=== PATIENT | female | born 1995 | race Caucasian/White ===

== ENCOUNTER 2018-03-04 05:13 | Inpatient (IN) | payer OTHER ==
[2018-03-04 05:41] VITALS: BMI 24.7
[2018-03-04] MEDS ORDERED: Lidocaine 1% (PF) 30 ML VIAL SC PRN (06:23)
[2018-03-04] MEDS ORDERED: NS / Oxytocin 40 units/1000ml 1,000 ML IV PRN (06:23)
[2018-03-04] MEDS ORDERED: Ibuprofen 800 MG TAB PO PRN (06:23)
[2018-03-04] MEDS ORDERED: Methylergonovine 0.2 MG/ML VIAL IM PRN ×2 (06:23→17:59)
[2018-03-04] MEDS ORDERED: Ondansetron HCl/PF 4 MG/2 ML Vial IVP PRN ×2 (06:23→17:59)
[2018-03-04] MEDS ORDERED: Promethazine HCl 25 MG/ML VIAL IM PRN (06:23)
[2018-03-04] MEDS ORDERED: HYDROcodone/Acetaminophen 5/325 mg Tablet PO PRN ×4 (06:23→17:59)
[2018-03-04] MEDS ORDERED: Misoprostol 200 MCG TAB PR PRN (06:23)
[2018-03-04] MEDS: Lactated Ringer's 1,000 ML IV PRN ×3 (06:27→10:07)
[2018-03-04 06:43] LABS: Hemoglobin 11.6 g/dL (12.0-16.0); Mean Corpuscular HGB CONC 34.4 g/dL (32.0-36.0); Mean Corpuscular Hemoglobin 30.5 pg (27.0-31.0); Mean Corpuscular Volume 88.6 fl (81.0-99.0); Mean Platelet Volume 9.3 fL (7.4-10.4); Platelet Count 144 thou/uL (130-400); RBC Distribution Width 12.1 % (11.5-14.5)
--- NOTE | 2018-03-04 07:01 | PDOC.LDHP ---
Labor and Delivery H&P Chief complaint: contractions, loss of fluid HPI: At 1230 pt reports a big loss of fluid that was clear. she tried to labor at home as long as possible, but came to the hospital after 0400 because she was having a hard time dealing with the pain. Current gestational age (weeks): 40 Due date: 03/01/18 Dating criteria: first trimester ultrasound Grav: 1 Para: 0 Current complications: none Abnormal US findings: No Past Medical History: Recurrectn UTIs and kidney infections Current medications: pre- vitamins Previous surgical history: none Allergies/Adverse Reactions: Allergies Allergy/AdvReac Type Severity Reaction Status Date / Time No Known Drug Allergies Allergy Verified 03/04/18 05:34 - Physical Exam Vital signs reviewed and normal: yes General: breathing through contractions Heart: RRR Lungs: CTAB Abdomen: gravid Extremeties: trace edema FHT: category 1 - Vaginal Exam cm dilated: 2 Effacement: 50% Station: 1+ - OB Labs Blood type: B RH: positive Antibody Screen: negative HIV: negative RPR: negative HEPSAg: negative 1 hour GCT: negative GBS: negative Urine drug screen: not done Rubella: immune - Assessment L&D Assessment: term patient in labor - Plan Plan: admit to L&D, anesthesia consult for pain management
[2018-03-04 07:15] LABS: Syphilis Antibody Nonreactive (Nonreactive); Syphilis Antibody Index 0.03 S/CO (<1.00 Non-Reactive)
[2018-03-04] MEDS ORDERED: Bupivacaine 0.5% 20 ML, fentaNYL Citrate/PF 400 MCG in Sodium Chloride 0.9% 72 ML EPIDURAL SCH ×2 (07:15→10:15)
[2018-03-04] MEDS ORDERED: DISCONTINUE ALL PREVIOUS NARCOTICS FS SCH (07:15)
[2018-03-04 07:16] LABS: HBSAg Index 0.22 S/CO (0-0.99); Hep B Surf Ag Non-Reactive S/CO (NonReactive)
[2018-03-04] MEDS ORDERED: LR 500 ML/Oxytocin 10 units 500 ML IV SCH (10:00)
[2018-03-04] MEDS ORDERED: Lactated Ringer's 500 ML IV PRN (10:07)
[2018-03-04] MEDS ORDERED: Eucerin (Mineral Oil/Petrolatum,White) 30 gm Jar TOP PRN (10:07)
[2018-03-04] MEDS ORDERED: ePHEDrine/0.9% NaCl/PF SYRINGE 50 mg/10 ml SLOW IVP PRN (10:07)
[2018-03-04] MEDS ORDERED: Naloxone HCl 0.4 mg/ml Vial IVP PRN (10:07)
[2018-03-04] MEDS ORDERED: Fentanyl 4mcg/Marcaine 0.1% Cassette 100 ML EPIDURAL SCH (10:15)
[2018-03-04] MEDS ORDERED: Communication Order-Pharmacy FS SCH (10:15)
[2018-03-04] MEDS ORDERED: Lidocaine 1% (PF) 30 ML VIAL ONE (15:02)
[2018-03-04] MEDS ORDERED: NS / Oxytocin 40 units/1000ml 1,000 ML ONE (15:02)
[2018-03-04] MEDS ORDERED: Benzocaine/Menthol 20-0.5% 60 ML CAN TOP PRN ×2 (17:06→17:59)
[2018-03-04] MEDS ORDERED: Lanolin Ointment 7 GM TUBE TOP PRN (17:59)
[2018-03-04] MEDS ORDERED: Bisacodyl 10 MG SUPP PR PRN (17:59)
[2018-03-04] MEDS ORDERED: Adacel (T-DAP) 0.5 ML VIAL IM ONE (17:59)
[2018-03-04] MEDS ORDERED: Misoprostol 200 MCG TAB VAG SCH (17:59)
[2018-03-04] MEDS ORDERED: Milk Of Magnesia 30 ML UDCUP PO PRN (17:59)
[2018-03-04] MEDS ORDERED: NS / Oxytocin 40 units/1000ml 1,000 ML IV SCH (17:59)
[2018-03-04] MEDS: Ferrous Sulfate 325 MG TAB PO SCH (19:30)
[2018-03-04] MEDS: Docusate Calcium (SURFAK) 240 MG CAP PO SCH (20:50)
[2018-03-04] MEDS: Ibuprofen 800 MG TAB PO SCH (21:59)
[2018-03-05] MEDS: Ibuprofen 800 MG TAB PO SCH ×3 (05:58→21:37)
[2018-03-05 06:24] LABS: Hemoglobin 9.6 g/dL (12.0-16.0); Mean Corpuscular HGB CONC 33.7 g/dL (32.0-36.0); Mean Platelet Volume 8.8 fL (7.4-10.4); Platelet Count 130 thou/uL (130-400); RBC Distribution Width 12.3 % (11.5-14.5); White Blood Cell (WBC) Count 15.4 thou/uL (4.8-10.8)
--- NOTE | 2018-03-05 07:40 | PDOC.OPDEL ---
OB Operative/Delivery Note Delivery Dr/Surgeon: Zeferino Assist: Light Pre-Delivery Diagnosis: active labor Procedure/Post Delivery Dx: spontaneous vaginal delivery Weeks gestation: 39 Anesthesia: epidural - Findings A Sex: male - 1 min: 3 - 5 min: 4 (7- 10 min) - Additional Findings/Plan Placenta delivered: spontaneous Repaired Obstetrical Laceration: right labial (and left labial approximated with 2-0 vicryl, hemostatic, 2nd degree perineal extending into sulcus reapproximated with 2-0 vicryl in usual fashion with hemostasis noted.) Estimated blood loss: 400 Compilations/Other Findings: Delivered straight OP position. FHT reassuring prior to delivery, slight tachycardia, possibly early chorio. Baby floppy but initially responded to stimulation and cried on maternal chest, delayed cord clamping x 3 min, then due to poor coloration, tone and cry taken to warmer where cpap was started and Dr Bedolla called. Infant to NICU mom to routine recovery. Post delivery plan: routine recovery
[2018-03-05] MEDS: Prenatal Vitamin 1 TAB PO SCH (09:15)
[2018-03-05] MEDS: Ferrous Sulfate 325 MG TAB PO SCH ×2 (09:15→17:20)
[2018-03-05] MEDS: Docusate Calcium (SURFAK) 240 MG CAP PO SCH ×2 (09:15→21:39)
--- NOTE | 2018-03-05 14:08 | PDOC.PP ---
Post Progress Note Post Day #: 1 Subjective: pt is doing well. able to urinate on her own. Feeling sore. Is pumping, but not getting much out. PO intake tolerated: yes Flatus: yes Ambulation: yes Vital Signs (12 hours) Temp Pulse Resp BP 03/05/18 08:55 98.8 F 70 18 110/72 03/05/18 08:06 98.8 F 70 18 03/05/18 04:10 98.0 F 66 20 Weight Weight 168 lb - Physical Examination Cardiovascular: no m/r/g Respiratory: non-labored breathing Abdominal: lochia (minimal) Fundus firm & at: U-1 Extremities: negative homans (B) Perineum: edematous Neurological: no gross focal deficits Psychiatric: A&Ox3 Result Diagrams: 03/05/18 06:01 Additional Labs: Post Labs Blood Type B POSITIVE 03/04/18 06:37 Hep Bs Antigen Non-Reactive S/CO (NonReactive) 03/04/18 06:37 (1) (spontaneous vaginal delivery) Code(s): O80 - ENCOUNTER FOR FULL-TERM UNCOMPLICATED DELIVERY Status: Acute (2) Occiput posterior presentation of fetus Code(s): O64.0XX0 - OBSTRUCTED LABOR DUE TO INCMPL ROTATION OF HEAD, UNSP Status: Acute (3) Second degree laceration of perineum, delivered, current hospitalization Code(s): O70.1 - SECOND DEGREE PERINEAL LACERATION DURING DELIVERY Status: Acute - Assessment/Plan A: G1 now P1 s/p with PPD#1 exam which is normal P: routine care. continue breast pump Q3 hrs or feeding at breast directly.
[2018-03-06] MEDS: Ibuprofen 800 MG TAB PO SCH ×2 (06:11→13:29)
--- NOTE | 2018-03-06 06:47 | PDOC.PP ---
Post Progress Note Post Day #: 1 Subjective: doing much better. walking is getting easier PO intake tolerated: yes Flatus: yes Ambulation: yes Vital Signs (12 hours) Temp Pulse Resp BP 03/05/18 20:30 97.9 F 77 18 111/76 Weight Weight 168 lb - Physical Examination General: NAD Cardiovascular: no m/r/g Respiratory: clear to auscultation bilaterally Abdominal: + bowel sounds, lochia (minimal) Fundus firm & at: -2 Extremities: negative homans (B) Perineum: minimal edema Neurological: no gross focal deficits Psychiatric: A&Ox3 Result Diagrams: 03/05/18 06:01 Additional Labs: Post Labs Blood Type B POSITIVE 03/04/18 06:37 Hep Bs Antigen Non-Reactive S/CO (NonReactive) 03/04/18 06:37 (1) (spontaneous vaginal delivery) Code(s): O80 - ENCOUNTER FOR FULL-TERM UNCOMPLICATED DELIVERY Status: Acute (2) Occiput posterior presentation of fetus Code(s): O64.0XX0 - OBSTRUCTED LABOR DUE TO INCMPL ROTATION OF HEAD, UNSP Status: Acute (3) Second degree laceration of perineum, delivered, current hospitalization Code(s): O70.1 - SECOND DEGREE PERINEAL LACERATION DURING DELIVERY Status: Acute - Assessment/Plan A: G1 now P1 sp with NL PPD#2 exam P; routine postartum care. continue pump q 3hrs. plan for discharge tomorrow
[2018-03-06] MEDS: Ferrous Sulfate 325 MG TAB PO SCH (08:35)
[2018-03-06] MEDS: Docusate Calcium (SURFAK) 240 MG CAP PO SCH (08:35)
[2018-03-06] MEDS: Prenatal Vitamin 1 TAB PO SCH (08:35)
[2018-03-06 08:56] VITALS: BP 114/71; TEMP 98.1
== END 2018-03-06 15:50 | disposition home or self-care (01) | DRG 775 ==
LOC: L&D/OP 05:13 → L&D 06:17 → 3SW 17:53
PROVIDERS: ADMIT Obstetrics & Gynecology; ATTEND Obstetrics & Gynecology
PROC: 10E0XZZ Delivery of Products of Conception, External Approach (ICD-10-PCS; principal; 2018-03-04)
PROC: 0KQM0ZZ Repair Perineum Muscle, Open Approach (ICD-10-PCS; 2018-03-04)
DX: O70.1 Second degree perineal laceration during delivery (principal); Z37.0 Single live birth; O64.0XX0 Obstructed labor due to incomplete rotation of fetal head, not applicable or unspecified; Z3A.40 40 weeks gestation of pregnancy
CPT/HCPCS: 36415; 51702; 85027; 86780; 86850; 86900; 86901; 87340; 88307; 99285; J2001; J3010; J3490; J7050